=== PATIENT | male | born 1975 | race Caucasian/White ===

== ENCOUNTER 2024-10-12 06:19 | Day surgery (SDC) | payer BC, SELFPAY | END 2024-10-12 09:05 | disposition home or self-care (01) | LOC: GI 06:19 | PROVIDERS: ATTENDING PHYSICIAN Internal Medicine Gastroenterology; FAMILY PHYSICIAN Physician Assistant Medical | DX: Z12.11 Encounter for screening for malignant neoplasm of colon (principal); K57.30 Diverticulosis of large intestine without perforation or abscess without bleeding; K64.8 Other hemorrhoids | CPT/HCPCS: G0121 ==

== ENCOUNTER → 2025-01-26 09:42 | Outpatient (REF) | payer BC, SELFPAY ==
[2025-01-26 10:09] LABS: ALT (SGPT) 15 U/L (0-50); AST (SGOT) 22 U/L (17-59); Albumin 3.7 g/dl (3.5-5.0); Alkaline Phosphatase 53 U/L (38-126); Blood Urea Nitrogen 10 mg/dl (9-20); Calcium 9.6 mg/dl (8.4-10.2); Carbon Dioxide 32 mmol/L (22-30); Chloride 104 mmol/L (98-107); Glucose 101 mg/dl (70-99); HDL Cholesterol 62 mg/dl; LDL Cholesterol, Calculated 125 mg/dl; Potassium 4.9 mmol/L (3.5-5.1); Sodium 139 mmol/L (135-145); Total Bilirubin 0.8 mg/dl (0.2-1.3); Total Cholesterol 204 mg/dl (50-199); Total Protein 6.1 g/dl (6.3-8.2); Triglyceride 87 mg/dl (10-149); Very Low Density Lipoprotein 17 mg/dl (0-30); eGFR > 60.00
[2025-01-26 10:15] LABS: % Basophils 1.4 % (0-2); % Eosinophils 11.4 % (0-6); % Immature Granulocytes 0.2 % (0-0.5); % Lymphocytes 23.1 % (20.5-51.1); % Monocytes 7.9 % (1.7-9.3); Absolute Basophils 0.1 10^3/uL (0-0.2); Absolute Eosinophils 0.7 10^3/uL (0-0.7); Absolute Lymphocytes 1.5 10^3/uL (1.2-3.4); Absolute Monocytes 0.5 10^3/uL (0.1-0.6); Absolute Neutrophils 3.5 10^3/uL (1.4-6.5); Hematocrit 41.5 % (39.0-52.0); Hemoglobin 14.5 g/dL (13.0-18.0); Mean Corp Hgb Conc. 34.9 g/dL (33.0-37.0); Mean Corpuscular Hgb 30.5 pg (27.0-31.0); Mean Corpuscular Volume 87.4 fL (80.0-94.0); Mean Platelet Volume 9.8 fL (7.4-10.4); Nucleated Red Blood Cells % 0 % (-); Platelet Count 287 10^3/uL (130-400); Red Blood Cell Count 4.75 10^6/uL (4.70-6.10); Red Cell Dist. Width 12.1 % (11.5-14.5); White Blood Cell Count 6.3 10^3/uL (4.8-10.8)
[2025-01-26 10:40] LABS: TSH 2.21 uIU/ml (0.47-4.68)
== END ==
LOC: REG 09:42
PROVIDERS: ATTENDING PHYSICIAN Physician Assistant Medical
DX: Z00.00 Encounter for general adult medical examination without abnormal findings (principal); Z80.42 Family history of malignant neoplasm of prostate; R35.1 Nocturia
CPT/HCPCS: 36415; 80053; 80061; 84443; 85025; G0103

== ENCOUNTER → 2025-03-10 12:45 | Outpatient (REF) | payer BC, SELFPAY | LOC: CLAB 12:45 | PROVIDERS: ATTENDING PHYSICIAN Specialist | DX: R97.20 Elevated prostate specific antigen [PSA] (principal) | CPT/HCPCS: 88305; 88344 ==

== ENCOUNTER → 2025-04-12 11:54 | Outpatient (REF) | payer BC, SELFPAY ==
[2025-04-12 13:54] LABS: Urine Albumin 3+ (Neg - Trace); Urine Bilirubin Negative (Negative); Urine Character Cloudy (Clear); Urine Color Yellow; Urine Glucose Negative (Negative); Urine Ketone 1+ (Negative); Urine Leukocyte 3+ (Negative); Urine Nitrite Negative (Negative); Urine Occult Blood 4+ (Negative); Urine Specific Gravity 1.015 (<1.030); Urine Urobilinogen Negative (Neg - 1+)
[2025-04-12 14:23] LABS: Urine Urothelial Cell 0-2 /LPF (FEW)
[2025-04-12 14:26] LABS: Urine Bacteria Few (Negative); Urine White Cell >100 /HPF (0-5)
== END ==
LOC: REG 11:54
PROVIDERS: ATTENDING PHYSICIAN Specialist
DX: N39.0 Urinary tract infection, site not specified (principal)
CPT/HCPCS: 81003; 81015; 87077; 87086; 87186

== ENCOUNTER 2025-05-20 08:13 | Outpatient (RCR) | payer BC, SELFPAY | END 2025-05-20 23:59 | disposition home or self-care (01) | LOC: RPT 08:13 | PROVIDERS: ATTENDING PHYSICIAN Urology; FAMILY PHYSICIAN Physician Assistant Medical | DX: C61 Malignant neoplasm of prostate (principal); M62.89 Other specified disorders of muscle; Z73.6 Limitation of activities due to disability | CPT/HCPCS: 97161; 97530 ==

== ENCOUNTER 2025-06-17 06:17 | Day surgery (SDC) | payer BC, SELFPAY ==
[2025-06-09 11:50] LABS: Hematocrit 42.1 % (39.0-52.0); Hemoglobin 14.7 g/dL (13.0-18.0); Mean Corp Hgb Conc. 34.9 g/dL (33.0-37.0); Mean Corpuscular Volume 84.9 fL (80.0-94.0); Platelet Count 248 10^3/uL (130-400); Red Cell Dist. Width 12.7 % (11.5-14.5)
[2025-06-09 12:14] LABS: Blood Urea Nitrogen 10 mg/dl (9-20); Calcium 9.5 mg/dl (8.4-10.2); Carbon Dioxide 24 mmol/L (22-30); Chloride 104 mmol/L (98-107); Glucose 102 mg/dl (70-99); Potassium 4.7 mmol/L (3.5-5.1); Sodium 135 mmol/L (135-145); eGFR > 60.00
[2025-06-09 14:01] VITALS: BMI 21.5
[2025-06-17] VITALS (14 sets, daily range): BP systolic 122–151; BP diastolic 68–105; BMI 21.5
[2025-06-17] MEDS: NORMOSOL-R/PLASMALYTE-A 1000 IV ×3 (06:26→23:43)
[2025-06-17] MEDS: TYLENOL 1000 MG PO (07:16)
--- NOTE | 2025-06-17 11:53 | W.IMMPOSTOP ---
Surgical Immed Post Op Note
-
Primary Surgeon: Cleopatrafer
Assisting Surgeon: -
Pre-op Diagnosis: Prostate cancer
Post-op Diagnosis: same
Procedure Performed: Robotic radical prostatectomy
Anesthesia Type: general
Specimen / Cultures: prostate
Estimated Blood Loss: 30cc
Complications: none
Operative Findings: -
[2025-06-17] MEDS: DILAUDID 0.25 MG IV ×2 (12:28→12:51)
[2025-06-17 12:39] LABS: Hematocrit 40.3 % (39.0-52.0); Hemoglobin 14.0 g/dL (13.0-18.0)
[2025-06-17 13:15] LABS: Blood Urea Nitrogen 15 mg/dl (9-20); Calcium 9.1 mg/dl (8.4-10.2); Carbon Dioxide 22 mmol/L (22-30); Chloride 104 mmol/L (98-107); Estimated Creatinine Clearance 105 ml/min; Glucose 159 mg/dl (70-99); Potassium 4.4 mmol/L (3.5-5.1); Sodium 133 mmol/L (135-145); eGFR > 60.00
--- NOTE | 2025-06-17 14:30 | PTCARENOTE ---
Pt received from the PACU via bed. Transport was w/o incident. Pt is drowsy and easily arousable. Pt denies pain or nausea. VSS, pt is afebrile. Pt's abd w/ 6 lap sites and 1 poke site well approximated w/ surgi glue, no drainage noted. carreon Cath
intact draining yellow urine. Pt and Pt's instructed on plan of care. Both Pt and verbalized understanding of instructions. Call mohan is within reach.
[2025-06-17] MEDS: TORADOL 15 MG IV ×2 (15:58→19:38)
[2025-06-17] MEDS: MORPHINE SULFATE 4 MG IV (16:07)
[2025-06-17] MEDS: ZOFRAN 4 MG IV (16:21)
[2025-06-17] MEDS: LOVENOX 40 MG SC (17:45)
[2025-06-17] MEDS: SENOKOT 17.2 MG PO (19:39)
[2025-06-17] MEDS: POLYSPORIN/DOUBLE ANTIBIOTIC 1 APPLIC TOPICAL (19:39)
[2025-06-17] MEDS: PERCOCET 5/325 1 TABLET PO (20:41)
[2025-06-18] VITALS (9 sets, daily range): BP systolic 90–134; BP diastolic 33–89; PULSE 66–74
[2025-06-18] MEDS: PERCOCET 5/325 1 TABLET PO ×3 (01:25→22:22)
[2025-06-18] MEDS: TORADOL 15 MG IV ×4 (01:25→20:31)
--- NOTE | 2025-06-18 04:55 | PTCARENOTE ---
Pt c/o dizziness/light headedness and sharp pain when he awoke. BP 112/63, HR 63, 99% on RA. It quickly passed but PANCHITO Braden notified and aware. Blood sugar was 146. No signs of bleeding. Urine is blood tinged but no different from beginning of
shift. AM labs drawn. Ortho signs ordered. Pt unable to tolerate sitting. See documentation. PANCHITO Braden at bedside. 500mL NSS bolus ordered and administered. Pt feeling better and re-attempted orthos. Unable to tolerate standing. He was ortho +.
See documentation. Pt still complaining of pain, Ofirmiv ONCE ordered and administered. Pt's bp after bolus was 118/76. Educated pt on safety of calling before getting OOB and avoiding narcotics. Pt agreeable. Care ongoing.
[2025-06-18 05:06] LABS: Glucose - Point of Care 146 mg/dl (70-99)
--- NOTE | 2025-06-18 05:06 | W.PN.UPDATE ---
Update Note
Progress Note Update
Patient is complaining of lightheaded and dizziness BP is soft. BS 146. Positive orthostatic vitals
Urine still tinged with blood
IV bolus of 500cc NSS. will avoid narc and give IV tylenol for pain.
Hgb Level 10.7 previously is 14.
Urology irrigation system installer updated and recommended to repeat CBC.
[2025-06-18] MEDS: NSS 500 IV (05:17)
[2025-06-18 05:46] LABS: Hematocrit 30.2 % (39.0-52.0); Hemoglobin 10.7 g/dL (13.0-18.0); Mean Corp Hgb Conc. 35.4 g/dL (33.0-37.0); Mean Corpuscular Volume 86.0 fL (80.0-94.0); Platelet Count 355 10^3/uL (130-400); Red Cell Dist. Width 13.0 % (11.5-14.5)
[2025-06-18 05:57] LABS: Blood Urea Nitrogen 19 mg/dl (9-20); Calcium 8.8 mg/dl (8.4-10.2); Carbon Dioxide 27 mmol/L (22-30); Chloride 99 mmol/L (98-107); Estimated Creatinine Clearance 84 ml/min; Glucose 147 mg/dl (70-99); Potassium 4.5 mmol/L (3.5-5.1); Sodium 130 mmol/L (135-145); eGFR > 60.00
[2025-06-18] MEDS: OFIRMEV 100 IV (06:13)
--- NOTE | 2025-06-18 06:33 | PTCARENOTE ---
Hgb came back 10.7. Previously 14.0. PANCHITO Braden notified and aware. Spoke with urology and ordered a recheck CBC @ 1200. Care ongoing.
--- NOTE | 2025-06-18 08:42 | W.PN.URO.CBU ---
Today's Communication / Plan
-
- OOB/ambulate
- Reg diet
- Castrejon to leg bag
- HGB drop with AM labs - recheck this afternoon to r/o active bleeding
Likely discharge today
Assessment / Plan
-
50M POD 1 s/p RALP
- OOB/ambulate
- Reg diet
- Castrejon to leg bag
- HGB drop with AM labs - recheck this afternoon to r/o active bleeding
Diagnosis
-
Date of Service: June 18, 2025
-
Patient Diagnosis:
Prostate cancer
Anemia - dilutional vs post op bleeding
Post Op Day: 1 s/p RALP
Subjective
-
Dizziness with standing
Pain controlled
No n/v
tolerating diet
Objective
-
Vital Signs
Temp Pulse Resp BP Pulse Ox
98.2 F 76 18 134/85 100
06/18/25 07:25 06/18/25 07:25 06/18/25 07:25 06/18/25 07:25 06/18/25 07:25
Intake and Output
06/17/25 06/18/25 06/19/25
06:59 06:59 06:59
Intake Total 580 / 580
Output Total 775 / 775
Balance -195 / -195
Intake:
Oral fluids 480 / 480
IV piggybacks 100 / 100
Output:
Urine, Castrejon 775 / 775
Laboratory Results
06/18/25 05:17
Physical Exam
-
General - well developed, well nourished, no acute distress
Chest - clear bilaterally
Abdomen - soft, non-tender
Castrejon in place, clear urine
Skin - warm & dry with no rash
Neuro - AOx3, no motor deficits
Extremities - no clubbing, no cyanosis, no edema
Incision - clean, dry
Dressing - clean, dry, intact
--- NOTE | 2025-06-18 08:51 | CM ---
CM reviewed medical records. Cm met with patient and in room. Patient does not have a history of VN, SNF or DME. Patient is agreeable to [facility] for carreon care. CM updated [facility] Admission RN.
PLAN: Home with [facility] for carreon care.
[2025-06-18] MEDS: COZAAR 50 MG PO (09:31)
[2025-06-18] MEDS: POLYSPORIN/DOUBLE ANTIBIOTIC 1 APPLIC TOPICAL ×2 (09:33→20:33)
[2025-06-18] MEDS: ZOLOFT 50 MG PO (09:33)
[2025-06-18] MEDS: SENOKOT 17.2 MG PO ×2 (09:34→20:31)
[2025-06-18] MEDS: SINGULAIR 10 MG PO (09:38)
--- NOTE | 2025-06-18 09:42 | VNURNOTE ---
Home Health Liaison met with patient at bedside to discuss [facility] nurse/therapy, visits, schedule and homebound status. Patient is agreeable and understands that visits at home will be 2-3 x per week to assess and teach medical and carreon management.
Patient is aware that [facility] will contact them for start of care in 1-2 days after discharge from . Pt declined contact number for [facility].
PM [facility] referral completed in [facility] Port.
[2025-06-18 12:16] LABS: Hematocrit 27.0 % (39.0-52.0); Hemoglobin 9.4 g/dL (13.0-18.0); Mean Corp Hgb Conc. 34.8 g/dL (33.0-37.0); Mean Corpuscular Volume 86.0 fL (80.0-94.0); Platelet Count 286 10^3/uL (130-400); Red Cell Dist. Width 13.0 % (11.5-14.5)
[2025-06-18] MEDS: FLUSH (NSS) 2 FLUSH IV (14:51)
--- NOTE | 2025-06-18 14:51 | W.PN.UPDATE ---
Update Note
Progress Note Update
Repeat HGB with >1g drop. Patient doing well this afternoon without hypotension, tolerating diet, ambulated
Will trend HGB in AM and continue obs
[2025-06-18] MEDS: LIDOCAINE 4% PATCH 2 PATCH TOPICAL (15:50)
[2025-06-18] MEDS: TYLENOL 650 MG PO (15:58)
[2025-06-18] MEDS: LOVENOX 40 MG SC (18:12)
[2025-06-18] MEDS: REMOVE LIDOCAINE PATCH 2 PATCH REMOVE (20:33)
[2025-06-19] MEDS: TYLENOL 650 MG PO ×4 (04:45→20:10)
[2025-06-19] MEDS: MYLICON 80 MG PO (04:46)
[2025-06-19 06:20] LABS: Hematocrit 23.1 % (39.0-52.0); Hemoglobin 8.0 g/dL (13.0-18.0); Mean Corp Hgb Conc. 34.6 g/dL (33.0-37.0); Mean Corpuscular Volume 86.5 fL (80.0-94.0); Platelet Count 231 10^3/uL (130-400); Red Cell Dist. Width 12.7 % (11.5-14.5)
[2025-06-19 06:42] LABS: Blood Urea Nitrogen 15 mg/dl (9-20); Calcium 8.5 mg/dl (8.4-10.2); Carbon Dioxide 28 mmol/L (22-30); Chloride 97 mmol/L (98-107); Estimated Creatinine Clearance 105 ml/min; Glucose 118 mg/dl (70-99); Potassium 3.7 mmol/L (3.5-5.1); Sodium 127 mmol/L (135-145); eGFR > 60.00
[2025-06-19 07:00] VITALS: BP 123/77
[2025-06-19] MEDS: LIDOCAINE 4% PATCH 2 PATCH TOPICAL (07:49)
[2025-06-19] MEDS: POLYSPORIN/DOUBLE ANTIBIOTIC 1 APPLIC TOPICAL ×2 (07:51→20:11)
[2025-06-19] MEDS: ZOLOFT 50 MG PO (07:51)
[2025-06-19] MEDS: SINGULAIR 10 MG PO (07:52)
[2025-06-19] MEDS: COZAAR 50 MG PO (07:52)
[2025-06-19] MEDS: SENOKOT 17.2 MG PO ×2 (07:52→21:12)
--- NOTE | 2025-06-19 09:29 | W.PN.URO.CBU ---
Today's Communication / Plan
-
Trend HGB
Possible discharge
Assessment / Plan
-
50M POD 2 s/p RALP
- HGB continued to decrease. Anemia asymptomatic and vitals show no signs of hypovolemia
- Repeat HGB at noon
- Transfuse for HGB<7 or symptomatic
- OOB/ambulate
- Reg diet
- Castrejon to leg bag
Discharge when HGB stabilizing
Diagnosis
-
Date of Service: June 19, 2025
-
Patient Diagnosis:
Prostate cancer
Anemia - post op bleeding
Post Op Day: 2 s/p RALP
Subjective
-
Back pain is most bothersome
Minimal abd pain
No dizziness, fainting, nausea, or vomiting
Objective
-
Vital Signs
Temp Pulse Resp BP Pulse Ox
98.6 F 83 16 123/77 100
06/19/25 07:00 06/19/25 07:00 06/19/25 07:00 06/19/25 07:00 06/19/25 07:00
Intake and Output
06/18/25 06/19/25 06/20/25
06:59 06:59 06:59
Intake Total 580 / 580 1760 / 1760
Output Total 775 / 775 850 / 850
Balance -195 / -195 910 / 910
Intake:
Oral fluids 480 / 480 1760 / 1760
IV piggybacks 100 / 100
Output:
Urine, Castrejon 775 / 775 850 / 850
Laboratory Results
06/19/25 06:09
Physical Exam
-
General - well developed, well nourished, no acute distress
Chest - clear
Abdomen - soft, non-tender
Skin - warm & dry with no rash
Neuro - AOx3, no motor deficits
Extremities - no clubbing, no cyanosis, no edema
Incision - clean, dry
Dressing - clean, dry, intact
[2025-06-19 12:13] LABS: Hematocrit 21.0 % (39.0-52.0); Hemoglobin 7.5 g/dL (13.0-18.0); Mean Corp Hgb Conc. 35.7 g/dL (33.0-37.0); Mean Corpuscular Volume 84.7 fL (80.0-94.0); Platelet Count 209 10^3/uL (130-400); Red Cell Dist. Width 12.8 % (11.5-14.5)
[2025-06-19] MEDS: TRANEXAMIC ACID 110 MG IV (13:24)
[2025-06-19 14:41] VITALS: BP 122/70
[2025-06-19 15:04] VITALS: BP 124/79
[2025-06-19 18:07] VITALS: BP 132/80
[2025-06-19 19:48] LABS: Hematocrit 26.4 % (39.0-52.0); Hemoglobin 9.4 g/dL (13.0-18.0); Mean Corp Hgb Conc. 35.6 g/dL (33.0-37.0); Mean Corpuscular Volume 87.7 fL (80.0-94.0); Platelet Count 289 10^3/uL (130-400); Red Cell Dist. Width 12.8 % (11.5-14.5)
[2025-06-19] MEDS: REMOVE LIDOCAINE PATCH 2 PATCH REMOVE (20:11)
[2025-06-19 23:00] VITALS: BP 142/78
[2025-06-20] MEDS: TYLENOL 650 MG PO ×2 (00:13→08:55)
[2025-06-20 06:01] LABS: Hematocrit 24.9 % (39.0-52.0); Hemoglobin 8.8 g/dL (13.0-18.0); Mean Corp Hgb Conc. 35.3 g/dL (33.0-37.0); Mean Corpuscular Volume 88.0 fL (80.0-94.0); Platelet Count 244 10^3/uL (130-400); Red Cell Dist. Width 12.8 % (11.5-14.5)
[2025-06-20 07:00] VITALS: BP 153/90
[2025-06-20] MEDS: SENOKOT 17.2 MG PO (08:56)
[2025-06-20] MEDS: ZOLOFT 50 MG PO (08:57)
[2025-06-20] MEDS: COZAAR 50 MG PO (08:57)
[2025-06-20] MEDS: SINGULAIR 10 MG PO (08:57)
[2025-06-20] MEDS: LIDOCAINE 4% PATCH TOPICAL (09:00)
--- NOTE | 2025-06-20 10:05 | W.PN.URO.CBU ---
Today's Communication / Plan
-
Discharge
Assessment / Plan
-
50M POD 3 s/p RALP
- Post op bleeding s/p transfusion 1 unit PRBCs 06/19. HGB responded appropriately by 1 gm compared to 24hrs prior
- No signs of hypovolemia or symptomatic anemia
- Plan to repeat CBC in 2 days outpatient
- Otherwise stable and feeling well
- Discharge today
Diagnosis
-
Date of Service: June 20, 2025
-
Patient Diagnosis:
Prostate cancer
Anemia - post op bleeding
Post Op Day: 3 s/p RALP
Subjective
-
Feeling well
Back pain improved
No lightheadedness
Ambulating without difficulty
Pain controlled
+BM
Objective
-
Vital Signs
Temp Pulse Resp BP Pulse Ox
98.4 F 90 16 153/90 98
06/20/25 07:00 06/20/25 07:00 06/20/25 07:00 06/20/25 07:00 06/20/25 07:00
Intake and Output
06/19/25 06/20/25 06/21/25
06:59 06:59 06:59
Intake Total 1760 / 1760 1090 / 1090
Output Total 850 / 850 1125 / 1125
Balance 910 / 910 -35 / -35
Intake:
Oral fluids 1760 / 1760 480 / 480
IV piggybacks 110 / 110
Blood products 250 / 250
Blood Product Amount Infused ( 250 / 250
mL)
Packed Rbc Leukoreduced Unit 250 / 250
[id number]
Output:
Urine, Castrejon 850 / 850 1125 / 1125
Laboratory Results
06/20/25 04:10
08/30/25 06:09
Physical Exam
-
General - well developed, well nourished, no acute distress
Chest - clear
Abdomen - soft, non-tender
Castrejon clear urine
Skin - warm & dry with no rash
Neuro - AOx3, no motor deficits
Extremities - no clubbing, no cyanosis, no edema
Incision - clean, dry
[2025-06-20] MEDS: POLYSPORIN/DOUBLE ANTIBIOTIC 1 APPLIC TOPICAL (10:41)
== END 2025-06-20 11:48 | disposition home or self-care (01) ==
LOC: SDS 06:17
PROVIDERS: Nurse Practitioner Family; ATTENDING PHYSICIAN Urology; FAMILY PHYSICIAN Physician Assistant Medical
DX: C61 Malignant neoplasm of prostate (principal); N41.1 Chronic prostatitis
CPT/HCPCS: 55866; 36415; 80048; 82962; 85014; 85018; 85027; 86850; 86900; 86901; 86920; 88305; 88307; 88309; 93005; P9016

== ENCOUNTER → 2025-06-22 09:23 | Outpatient (REF) | payer BC, SELFPAY ==
[2025-06-22 11:45] LABS: Hematocrit 29.4 % (39.0-52.0); Hemoglobin 10.1 g/dL (13.0-18.0); Mean Corp Hgb Conc. 34.4 g/dL (33.0-37.0); Mean Corpuscular Volume 88.6 fL (80.0-94.0); Platelet Count 367 10^3/uL (130-400); Red Cell Dist. Width 13.0 % (11.5-14.5)
== END ==
LOC: CLAB 09:23
PROVIDERS: ATTENDING PHYSICIAN Urology
DX: D62 Acute posthemorrhagic anemia (principal)
CPT/HCPCS: 36415; 85027

== ENCOUNTER → 2025-06-30 14:19 | Outpatient (REF) | payer BC, SELFPAY ==
[2025-06-30 14:33] LABS: Urine Character Bloody (Clear)
[2025-06-30 14:50] LABS: Urine Squamous Cell 0-2 /LPF (Few); Urine White Cell >100 /HPF (0-5)
== END ==
LOC: REG 14:19
PROVIDERS: ATTENDING PHYSICIAN Urology; FAMILY PHYSICIAN Physician Assistant Medical
DX: N39.0 Urinary tract infection, site not specified (principal)
CPT/HCPCS: 81003; 81015; 87077; 87086; 87186

== ENCOUNTER → 2025-07-12 19:05 | Outpatient (REF) | payer BC, SELFPAY ==
[2025-07-12 20:59] LABS: Urine Character Clear (Clear)
[2025-07-12 21:21] LABS: Urine White Cell 26-30 /HPF (0-5)
== END ==
LOC: CLAB 19:05
PROVIDERS: ATTENDING PHYSICIAN Urology
DX: N39.0 Urinary tract infection, site not specified (principal)
CPT/HCPCS: 81003; 81015; 87086; 87088; 87186

== ENCOUNTER → 2025-07-13 10:28 | Outpatient (REF) | payer BC, SELFPAY | LOC: CLAB 10:28 | PROVIDERS: ATTENDING PHYSICIAN Urology | DX: N39.0 Urinary tract infection, site not specified (principal) | CPT/HCPCS: 87086; 87088 ==

== ENCOUNTER → 2025-08-09 09:31 | Outpatient (REF) | payer BC, SELFPAY | LOC: REG 09:31 | PROVIDERS: ATTENDING PHYSICIAN Urology | DX: C61 Malignant neoplasm of prostate (principal) | CPT/HCPCS: 36415; 84153 ==

== ENCOUNTER → 2025-08-12 09:40 | Outpatient (REF) | payer BC, SELFPAY ==
[2025-08-12 11:13] LABS: Urine Character Clear (Clear)
[2025-08-12 12:10] LABS: Urine Squamous Cell 0-2 /LPF (Few)
== END ==
LOC: CLAB 09:40
PROVIDERS: ATTENDING PHYSICIAN Urology
DX: C61 Malignant neoplasm of prostate (principal)
CPT/HCPCS: 81003; 81015; 87086